=== PATIENT | female | born 1985 | race African-American/Black ===

== ENCOUNTER 2017-08-20 05:10 | Inpatient (IN) ==
[2017-08-20] MEDS ORDERED: LACTATED RINGERS 500 ML IV PRN (05:32)
[2017-08-20] MEDS ORDERED: ONDANSETRON 4 MG/2 ML VIAL IV PRN ×2 (05:32→12:50)
[2017-08-20] MEDS ORDERED: BUTORPHANOL 1 MG/ML VIAL IV PRN (05:32)
[2017-08-20] MEDS ORDERED: OXYTOCIN/LR 20 UNIT/1,000 ML BAG IV SCH (06:00)
[2017-08-20] MEDS: LACTATED RINGERS 1,000 ML IV SCH ×2 (06:15→09:18)
[2017-08-20 06:24] LABS: Basophils % 0.3 % (0.0-0.8); Eosinophils # 0.1 10*3/uL (0.0-0.87); Eosinophils % 1.9 % (0.00-10.9); Hematocrit 35.3 VOL% (35.7-47.0); Hemoglobin 11.6 GM/DL (12.0-16.0); Immature Granulocytes % 1.3 %; Immature Granulocytes Absolute 0.09 #; Lymphocytes # 1.7 10*3/uL (1.4-4.0); Lymphocytes % 23.2 % (21.3-54.2); Mean Corpuscular HGB Conc 32.9 GM/DL (32-36); Mean Corpuscular Hemoglobin 27 PG (27-34); Mean Corpuscular Volume 82.7 FL (87-102); Mean Platelet Volume 12.1 FL (9.6-12.0); Monocytes # 0.4 10*3/uL (0.11-0.8); Monocytes % 5.4 % (1.7-12.7); Neutrophils # 4.9 10*3/uL (1.4-7.4); Neutrophils % 67.9 % (38.7-73.9); Platelet Count 226 T/CUMM (130-400); Red Blood Count 4.27 MC/CUMM (3.8-5.5); Red Cell Distribution Width 14.6 % (9.3-17.3); White Blood Count 7.2 T/CUMM (4-12)
[2017-08-20] MEDS ORDERED: AMPICILLIN INJ 2,000 MG in SODIUM CHLORIDE 0.9% 100 ML IV SCH (08:00)
[2017-08-20] MEDS ORDERED: ONDANSETRON 4 MG/2 ML VIAL IV ONE (08:14)
[2017-08-20] MEDS ORDERED: hydrOXYzine HCL 50 MG/1 ML VIAL IM PRN (08:14)
[2017-08-20] MEDS ORDERED: PROMETHAZINE 25 MG/1 ML VIAL IM ONE (08:14)
[2017-08-20] MEDS ORDERED: diphenhydrAMINE 50 MG/1 ML VIAL IV PRN ×2 (08:14)
[2017-08-20] MEDS ORDERED: FAMOTIDINE 20 MG/2 ML VIAL IV ONE (08:14)
[2017-08-20] MEDS ORDERED: ePHEDrine 50 MG/ML AMP IV PRN (08:14)
[2017-08-20] MEDS ORDERED: CITRIC ACID/SODIUM CITRATE 30 ML UDCUP PO ONE (08:14)
[2017-08-20] MEDS ORDERED: fentaNYL 2 MCG/ROPIV 0.2% EPID 150 ML EPIDURAL SCH (08:30)
[2017-08-20 08:31] LABS: PT Patient Result 10.1 SECS; Partial Thromboplastin Time 31.1 SECS (0-40)
--- NOTE | 2017-08-20 09:09 | OB/GYN History & Physical ---
History of Present Illness Chief complaint: Gestational hypertension History of present illness: Ms. Stout is a 32 year old female 38 weeks gestation with gestational hypertension and history of previous disease section for which she requests trial of labor. Patient for induction of labor at term. Home Medications Medication Instructions Recorded Confirmed Type No Known Home Medications [No 08/20/17 08/20/17 History Known Home Medications] Allergies Allergy/AdvReac Type Severity Reaction Status Date / Time No Known Allergies Allergy Verified 02/14/17 02:49 12 point system: reviewed and no additional remarkable complaints except as stated Medical,Surgical,& Family Hx - Medical History Cardio: History of: Hypertension Reproductive: No history of: Ectopic , Complication - Surgical History Reproductive Surgeries: Surgical HX of;: Section - Family History Family History: Reports;: Family Diabetes (mother, mgm,mgf), Family Heart Disease (mgf), Family Hypertension (mother, mgm,mgf), Family Stroke (mgf) - Social History Smoking Status: Never smoker Frequency of Alcohol Use: None 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 - Constitutional Vitals: Vital Signs Temp Pulse Resp BP Pulse Ox 08/20/17 05:33 97.8 F 86 20 134/80 98 General appearance: no acute distress - Antepartum / Post Antepartum Exam Cervix - Dilatation: 4 cm Effacement: 80% Station: -2 Rupture: Artificial rupture membranes with clear fluid Presentation: Vertex Heart Rate: 140s 150s reactive with good beat to beat variability [place]: Contractions every 2-3 minutes Abdomen obstetrics: Present: bowel sounds normal Vagina: Present: normal moisture Uterus exam: Present: normal size, normal contour Anus/Rectum: Present: normal perianal skin - Head Head exam: Present: normocephalic - Neck Neck exam: Present: normal inspection - Respiratory Respiratory exam: Present: clear to auscultation bilaterally - Cardiovascular Cardiovascular exam: Present: regular rate and rhythm - GI/Abdominal GI/Abdominal exam: Present: normal bowel sounds, soft - Extremities Exam Extremities exam: Present: normal inspection - Back Exam Back exam: Present: normal inspection - Neurological Exam Neurological exam: Present: alert, oriented X3 - Psychiatric Psychiatric exam: Present: normal affect, normal mood - Skin Skin exam: Present: normal color, warm Assessment and Plan (1) 38 weeks gestation of Status: Acute Current Visit: Yes (2) Gestational hypertension Status: Acute Current Visit: Yes (3) Previous section Status: Acute Current Visit: Yes (4) Encounter for trial of labor Status: Acute Assessment and plan: Patient admitted for Pitocin trial of labor with expected vaginal delivery. Patient may have epidural upon request. Risks benefits and alternatives to the procedure reviewed with the patient. Current Visit: Yes Results - Labs CBC & BMP: 08/20/17 05:50
[2017-08-20 09:23] LABS: Albumin 2.5 G/DL (3.4-5.0); Bilirubin,Total 0.4 MG/DL (0.2-1.0); Calcium 9.2 MG/DL (8.5-10.1); Osmolality,Calculated 270.1 MOS/KG (273-304); Potassium 3.9 MMOL/L (3.5-5.1); Total Protein 6.5 G/DL (6.4-8.3)
[2017-08-20] MEDS ORDERED: BISACODYL 10 MG SUPP RECTAL PRN (12:50)
[2017-08-20] MEDS ORDERED: BENZOCAINE 20%/MENTHOL 0.5% SPRAY 56 GM CAN TOP PRN (12:50)
[2017-08-20] MEDS ORDERED: ACETAMINOPHEN 325 MG TABLET PO PRN (12:50)
[2017-08-20] MEDS ORDERED: LANOLIN 50% CREAM 0.3 OZ TUBE TOP PRN (12:50)
[2017-08-20] MEDS ORDERED: HYDROCORTISONE 2.5% RECTAL CREAM 30 GM TUBE TOP PRN (12:50)
[2017-08-20] MEDS ORDERED: WITCH HAZEL PADS 100/JAR TOP PRN (12:50)
[2017-08-20] MEDS ORDERED: OXYTOCIN/LR 20 UNIT/1,000 ML BAG IV ONE (12:50)
[2017-08-20] MEDS ORDERED: oxyCODONE/ACETAMINOPHEN 5-325 MG TABLET PO PRN ×3 (12:50→21:36)
--- NOTE | 2017-08-20 12:52 | Operative Note ---
Date of procedure: 08/20/17 Procedure Preformed: Patient delivered a liveborn male via spontaneous vaginal delivery. Baby 's head was delivered in the OA position. The baby's nose mouth bulb suctioned the perineum. Anterior posterior shoulders followed by the body was delivered with ease. Status post internal after" was doubly clamped and cut. Cord blood was sent. Placenta was delivered spontaneously and intact with three-vessel cord. The uterus was massaged and was found to confirm a well contracted. The patient sustained no lacerations. . Birthweight []. Apgars 8 and 9. Baby and mother stable. And the procedure all sponge lap counts correct 2. Surgeon / Physician: Papito Feldman Post-op diagnosis: same Findings: Liveborn male infant Apgars 8 and 9 Specimens: none sent Estimated blood loss: other (75 mL) Condition: stable Anesthesia: epidural Disposition: floor
[2017-08-20] MEDS ORDERED: MEASLES/MUMPS/RUBELLA VACCINE 0.5 ML VIAL SUBCUT ONE (13:00)
[2017-08-20] MEDS ORDERED: RHO(D) IMMUNE GLOBULIN 300 MCG SYRINGE IM ONE (13:00)
[2017-08-20] MEDS ORDERED: DIPH/TET/ACEL PERT BOOSTER VACCINE 0.5 ML VIAL IM ONE (13:00)
[2017-08-20] MEDS: IBUPROFEN 800 MG TABLET PO PRN ×2 (14:03→21:45)
[2017-08-20 16:38] LABS: Apearance,Urine CLEAR (Clear); Bilirubin,Urine Negative (Negative); Blood, Urine Negative (Negative); Glucose,Urine (UA) Negative (Negative); Ketones,Urine Negative (Negative); Mucus,Urine Occasional /LPF (Occasional); Nitrite,Urine Negative (Negative); Protein,Urine Negative; RBC,Urine <1 /HPF (0-4); Squamous Epithelial Cell,Urine Occasional /HPF (0-10); Urine Color Yellow (Yellow); Urine Specific Gravity 1.011 (1.001-1.035); Urine Urobilinogen < 2.0 EU/DL (0.2-1.0); WBC,Urine <1 /HPF (0-6)
--- NOTE | 2017-08-20 18:07 | Discharge Summary ---
Hospital Course - Hospital Course Hospital Course: This is a 32-year-old multiparous female admitted at 38 weeks gestation secondary to gestational hypertension for vaginal trial of labor. Patient subsequent delivered a liveborn infant via spontaneous vaginal delivery-vaginal after section. Hospital course was unremarkable and by day #2 she was ready for discharge. Diagnosis - Discharge Diagnosis (1) 38 weeks gestation of Status: Acute (2) Gestational hypertension Status: Acute (3) Previous section Status: Acute (4) Encounter for trial of labor Status: Acute Specialty Discharge - Follow Up or Referrals Follow up with: Papito Feldman MD [Physician] - 1 Week Discharge Plan - Discharge Data Disposition: Disch To Home/Self Care Condition at Discharge: Stable Discharge Diet: advance to your usual diet Activity: resume usual activities as tolerated (Pelvic rest) Hygiene: may shower Weight Bearing at Discharge: weight bear as tolerated Driving: no restrictions Contact your physician if you experience:: fever over 101, Difficulty voiding, Redness or swelling, Nausea/Vomiting, Shortness of breath, Bleeding, pain uncontrolled by pain medications - Discharge Medications New Ibuprofen Tab [Motrin Tab] 800 mg PO Q6H PRN #30 tablet PRN Reason: Pain Moderate (4-7) - Follow Up or Referral Follow Up: Papito Feldman MD [Physician] - 1 Week - Forms/Instructions Exam - Constitutional Vitals: Period Temp Pulse Resp BP Sys/Whitaker Pulse Ox Last 24 Hr 97.8 F-98.0 F 78-86 20-20 127-165/68-88 98-99 General appearance: no acute distress - Head Head exam: Present: normocephalic - ENT ENT exam: Present: normal exam - Neck Neck exam: Present: normal inspection - Respiratory Respiratory exam: Present: clear to auscultation bilaterally - Cardiovascular Cardiovascular exam: Present: regular rate and rhythm - GI/Abdominal GI/Abdominal exam: Present: normal bowel sounds, soft - Extremities Exam Extremities exam: Present: normal inspection - Back Exam Back exam: Present: normal inspection - Neurological Exam Neurological exam: Present: alert, oriented X3 - Psychiatric Psychiatric exam: Present: normal affect, normal mood - Skin Skin exam: Present: normal color, warm Discharge Results Procedures and tests throughout hospitalization: Pending Orders 08/21/17 04:00 Comp Blood Count Auto Diff IN AM Labs on day of discharge: Labs from last 24 hours 08/20/17 08/20/17 08/20/17 15:00 10:45 05:50 WBC RBC Hgb Hct MCV MCH MCHC RDW Plt Count MPV Neut % (Auto) Lymph % (Auto) [place] % (Auto) Eos % (Auto) Baso % (Auto) Neut # (Auto) Lymph # (Auto) [place] # (Auto) Eos # (Auto) Baso # (Auto) Immature Gran % Nucleated RBC % Immature Gran # Nucleated RBCs # Immature Plt Fraction INR PT Patient/Control Mix Fibrinogen 474 H Circ Anticoag PTT Sodium Potassium Chloride Carbon Dioxide Anion Gap BUN Creatinine GFR Calculation BUN/Creatinine Ratio Glucose Calculated Osmolality Calcium Total Bilirubin AST ALT Alkaline Phosphatase Total Protein Albumin Globulin Albumin/Globulin Ratio Urine Color Cancelled Yellow Urine Appearance Cancelled Clear Urine pH Cancelled 7.0 Ur Specific [place] Cancelled 1.011 U Specif Grav (Refrac) Cancelled Urine Protein Cancelled Negative Urine Glucose (UA) Cancelled Negative Urine Ketones Cancelled Negative Urine Blood Cancelled Negative Urine Nitrate Cancelled Negative Urine Bilirubin Cancelled Negative Urine Ictotest Cancelled Urine Urobilinogen Cancelled < 2.0 H Urine Leukocytes Cancelled Negative Urine RBC Cancelled <1 Urine WBC Cancelled <1 Urine WBC Clumps Cancelled Ur Squamous Epith Cells Cancelled Occasional Ur Transition Epith Cell Cancelled Ur Renal Epithelial Cell Cancelled [place] Biurate Crystals Cancelled Calcium Carbonate Cryst Cancelled Calcium Oxalate Crystal Cancelled Calcium Sulfate Crystal Cancelled Leucine Crystals Cancelled Cystine Crystals Cancelled Uric Acid Crystals Cancelled Triple Phos Crystals Cancelled Cholesterol Crystals Cancelled Tyrosine Crystals Cancelled Hippuric Acid Crystals Cancelled Bilirubin Crystals Cancelled Other Crystals Cancelled Amorphous Crystals Cancelled Urine Bacteria Cancelled Cellular Casts Cancelled Epithelial Casts Cancelled Fatty Casts Cancelled Hyaline Casts Cancelled Granular Casts Cancelled Fine Granular Casts Cancelled Coarse Granular Casts Cancelled Waxy Casts Cancelled Broad Casts Cancelled RBC Casts Cancelled WBC Casts Cancelled Other Casts Cancelled Urine Mucus Cancelled Occasional Urine Trichomonas Cancelled Ur Yeast w Hyphae Cancelled Urine Yeast (Budding) Cancelled Urine Sperm Cancelled Ur Culture Indicated? Cancelled Not indicated Micro UA Comment Cancelled Blood Type Antibody Screen 08/20/17 08/20/17 08/20/17 05:50 05:50 05:50 WBC RBC Hgb Hct MCV MCH MCHC RDW Plt Count MPV Neut % (Auto) Lymph % (Auto) [place] % (Auto) Eos % (Auto) Baso % (Auto) Neut # (Auto) Lymph # (Auto) [place] # (Auto) Eos # (Auto) Baso # (Auto) Immature Gran % Nucleated RBC % Immature Gran # Nucleated RBCs # Immature Plt Fraction INR 1.0 PT Patient/Control Mix 10.1 Fibrinogen Circ Anticoag PTT 31.1 Sodium 135 L Potassium 3.9 Chloride 104 Carbon Dioxide 22 Anion Gap 12.9 BUN 6 L Creatinine 0.70 GFR Calculation 162 BUN/Creatinine Ratio 8.00 Glucose 144 H Calculated Osmolality 270.1 L Calcium 9.2 Total Bilirubin 0.40 AST 36 ALT 65 H Alkaline Phosphatase 188 H Total Protein 6.5 Albumin 2.5 L Globulin 4.0 H Albumin/Globulin Ratio 0.6 L Urine Color Urine Appearance Urine pH Ur Specific [place] U Specif Grav (Refrac) Urine Protein Urine Glucose (UA) Urine Ketones Urine Blood Urine Nitrate Urine Bilirubin Urine Ictotest Urine Urobilinogen Urine Leukocytes Urine RBC Urine WBC Urine WBC Clumps Ur Squamous Epith Cells Ur Transition Epith Cell Ur Renal Epithelial Cell [place] Biurate Crystals Calcium Carbonate Cryst Calcium Oxalate Crystal Calcium Sulfate Crystal Leucine Crystals Cystine Crystals Uric Acid Crystals Triple Phos Crystals Cholesterol Crystals Tyrosine Crystals Hippuric Acid Crystals Bilirubin Crystals Other Crystals Amorphous Crystals Urine Bacteria Cellular Casts Epithelial Casts Fatty Casts Hyaline Casts Granular Casts Fine Granular Casts Coarse Granular Casts Waxy Casts Broad Casts RBC Casts WBC Casts Other Casts Urine Mucus Urine Trichomonas Ur Yeast w Hyphae Urine Yeast (Budding) Urine Sperm Ur Culture Indicated? Micro UA Comment Blood Type O POSITIVE Antibody Screen Negative 08/20/17 05:50 WBC 7.2 RBC 4.27 Hgb 11.6 L Hct 35.3 L MCV 82.7 L MCH 27 MCHC 32.9 RDW 14.6 Plt Count 226 MPV 12.1 H Neut % (Auto) 67.9 Lymph % (Auto) 23.2 [place] % (Auto) 5.4 Eos % (Auto) 1.9 Baso % (Auto) 0.3 Neut # (Auto) 4.9 Lymph # (Auto) 1.7 [place] # (Auto) 0.4 Eos # (Auto) 0.1 Baso # (Auto) 0.0 Immature Gran % 1.3 Nucleated RBC % 0.0 Immature Gran # 0.09 Nucleated RBCs # 0.00 Immature Plt Fraction 0.0 INR PT Patient/Control Mix Fibrinogen Circ Anticoag PTT Sodium Potassium Chloride Carbon Dioxide Anion Gap BUN Creatinine GFR Calculation BUN/Creatinine Ratio Glucose Calculated Osmolality Calcium Total Bilirubin AST ALT Alkaline Phosphatase Total Protein Albumin Globulin Albumin/Globulin Ratio Urine Color Urine Appearance Urine pH Ur Specific [place] U Specif Grav (Refrac) Urine Protein Urine Glucose (UA) Urine Ketones Urine Blood Urine Nitrate Urine Bilirubin Urine Ictotest Urine Urobilinogen Urine Leukocytes Urine RBC Urine WBC Urine WBC Clumps Ur Squamous Epith Cells Ur Transition Epith Cell Ur Renal Epithelial Cell [place] Biurate Crystals Calcium Carbonate Cryst Calcium Oxalate Crystal Calcium Sulfate Crystal Leucine Crystals Cystine Crystals Uric Acid Crystals Triple Phos Crystals Cholesterol Crystals Tyrosine Crystals Hippuric Acid Crystals Bilirubin Crystals Other Crystals Amorphous Crystals Urine Bacteria Cellular Casts Epithelial Casts Fatty Casts Hyaline Casts Granular Casts Fine Granular Casts Coarse Granular Casts Waxy Casts Broad Casts RBC Casts WBC Casts Other Casts Urine Mucus Urine Trichomonas Ur Yeast w Hyphae Urine Yeast (Budding) Urine Sperm Ur Culture Indicated? Micro UA Comment Blood Type Antibody Screen DS: Provider Date of admission: 08/20/17 05:33 Attending physician on admission: Papito Feldman MD Consults: 08/20/17 05:33 Consult to Anesthesiology [CONS] Routine Consulting Provider: Reason for Anesthesiology: Epidural Consult Comment: Epidural for pain managment 08/20/17 12:50 Consult to Stringer Machine Tender [CONS] Routine Consult Stringer Machine Tender: Breast Feeding Discharging clinician: Papito Feldman MD
[2017-08-20] MEDS: DOCUSATE SODIUM 100 MG CAPSULE PO SCH (21:45)
[2017-08-20] MEDS: oxyCODONE/ACETAMINOPHEN 5-325 MG TABLET PO PRN (22:59)
[2017-08-21 04:23] LABS: Basophils % 0.3 % (0.0-0.8); Eosinophils # 0.2 10*3/uL (0.0-0.87); Eosinophils % 2.3 % (0.00-10.9); Hematocrit 31.3 VOL% (35.7-47.0); Hemoglobin 10.2 GM/DL (12.0-16.0); Immature Granulocytes Absolute 0.09 #; Lymphocytes # 2.3 10*3/uL (1.4-4.0); Lymphocytes % 24.8 % (21.3-54.2); Mean Corpuscular HGB Conc 32.6 GM/DL (32-36); Mean Corpuscular Hemoglobin 27 PG (27-34); Mean Corpuscular Volume 84.1 FL (87-102); Mean Platelet Volume 12.1 FL (9.6-12.0); Monocytes # 0.6 10*3/uL (0.11-0.8); Monocytes % 6.7 % (1.7-12.7); Neutrophils # 5.9 10*3/uL (1.4-7.4); Neutrophils % 64.9 % (38.7-73.9); Platelet Count 192 T/CUMM (130-400); Red Blood Count 3.72 MC/CUMM (3.8-5.5); Red Cell Distribution Width 14.8 % (9.3-17.3); White Blood Count 9.1 T/CUMM (4-12)
[2017-08-21] MEDS: oxyCODONE/ACETAMINOPHEN 5-325 MG TABLET PO PRN ×3 (06:23→17:05)
[2017-08-21] MEDS: DOCUSATE SODIUM 100 MG CAPSULE PO SCH ×2 (08:40→21:43)
--- NOTE | 2017-08-21 08:40 | Anesthesia Post-Op ---
Anesthesia Post OP - Post Ansesthetic Evaluation Patient seen in post op: Yes Resp: within normal limits CV: within normal limits Mental: within normal limits Temp: within normal limits Lyep-[id number]: within normal limits Nausea and Vomiting: within normal limits Pain: within normal limits
--- NOTE | 2017-08-21 08:50 | OB/GYN Progress Note ---
Assessment and Plan (1) 38 weeks gestation of Status: Acute Current Visit: Yes (2) Gestational hypertension Status: Acute Current Visit: Yes (3) Previous section Status: Acute Current Visit: Yes (4) Encounter for trial of labor Status: Acute Assessment and plan: Patient admitted for Pitocin trial of labor with expected vaginal delivery. Patient may have epidural upon request. Risks benefits and alternatives to the procedure reviewed with the patient. Current Visit: Yes (5) Vaginal after () Status: Acute Assessment and plan: Routine care with discharge planning in the a.m. 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 Patient is bottlefeeding and unsure of her choice for contraception Exam TECHNICAL SALES SPECIALIST - Constitutional Vitals: Vital Signs Temp Pulse Resp BP Pulse Ox 08/21/17 07:20 97.8 F 67 20 150/87 98 08/21/17 05:50 20 08/21/17 05:00 20 08/21/17 04:00 98.2 F 79 18 124/86 97 08/21/17 03:00 18 08/21/17 02:00 20 08/21/17 01:00 20 08/20/17 23:59 98.0 F 77 20 122/78 97 08/20/17 19:41 98.4 F 86 18 140/73 96 08/20/17 18:16 80 20 134/71 99 08/20/17 17:00 81 20 127/68 99 08/20/17 16:00 79 20 162/88 99 08/20/17 15:30 98.0 F 78 20 165/78 99 - Antepartum / Post Post Exam Abdomen obstetrics: Present: bowel sounds normal Vagina: Present: normal moisture Uterus exam: Present: normal size, normal contour Anus/Rectum: Present: normal perianal skin - Head Head exam: Present: normocephalic - Neck Neck exam: Present: normal inspection - Respiratory Respiratory exam: Present: clear to auscultation bilaterally - Cardiovascular Cardiovascular exam: Present: regular rate and rhythm - GI/Abdominal GI/Abdominal exam: Present: normal bowel sounds, soft - Extremities Exam Extremities exam: Present: normal inspection - Back Exam Back exam: Present: normal inspection - Neurological Exam Neurological exam: Present: alert, oriented X3 - Psychiatric Psychiatric exam: Present: normal affect, normal mood - Skin Skin exam: Present: normal color, warm Results - Labs CBC & BMP: 08/21/17 04:06 08/20/17 05:50
[2017-08-21] MEDS: IBUPROFEN 800 MG TABLET PO PRN (11:50)
[2017-08-22] MEDS: oxyCODONE/ACETAMINOPHEN 5-325 MG TABLET PO PRN ×2 (01:57→08:30)
[2017-08-22 07:29] VITALS: BP 135/84
[2017-08-22] MEDS: DOCUSATE SODIUM 100 MG CAPSULE PO SCH (08:29)
[2017-08-22] MEDS: IBUPROFEN 800 MG TABLET PO PRN (08:32)
== END 2017-08-22 12:05 | disposition home or self-care (01) | DRG 775 ==
LOC: N.LDOUT 05:10 → N.LD 05:24 → N.OB 15:25
PROVIDERS: ADMIT Obstetrics & Gynecology; ATTEND Obstetrics & Gynecology